=== PATIENT | female | born 1945 | race Caucasian/White ===

== ENCOUNTER 2022-03-31 08:34 | Outpatient (CLI) | payer OTHER, SELFPAY ==
--- NOTE | 2022-03-31 08:45 | MR_ITS ---
WS: [id number] MRI BRAIN WITHOUT CONTRAST HISTORY: R42 - Dizziness and giddiness COMPARISON: None available. TECHNIQUE: Diffusion imaging, multiplanar T1, T2 and FLAIR imaging obtained. No evidence for acute infarct or hemorrhage. Chang-white matter differentiation is normal. Very minimal atrophy is symmetric. There are numerous T2 and FLAIR signal hyperintensities in the sub cortical and central white matter. These extend to the vertex and also through the central cerebrum. No sil or cerebellar abnormality. Ventricles and extra-axial spaces are normal. No inferior displacement of cerebellar tonsils. The sella turcica and pituitary gland are unremarkabl e. Dural venous sinuses and [place] demonstrate no abnormality on this unenhanced studies. Paranasal sinuses: Clear. Mastoid air cells: Small amount of fluid in the RIGHT mastoid air cell. No fluid extending into the i nternal or external auditory canal. No mass effect upon the cerebellopontine angle. Calvarium and scalp: Intact. MR/MR head wo con* [id number] IMPRESSION: 1. No acute infarct or hemorrhage. 2. Mild atrophy with moderate small vessel ischemic changes throughout the whi te matter. 3. No prior infarct. 4. Small amount of fluid in the RIGHT mastoid air cells.
--- NOTE | 2022-03-31 09:30 | MR_ITS ---
WS: [id number] MRA ANGIOGRAPHY [place] OF [place] HISTORY: R42 - Dizziness and giddiness COMPARISON: None available. TECHNIQUE: 3-D MR angiography is performed of the [place]. All images are reviewed including source images. Distal vertebral and basilar arteries are intact with no significant stenosis or plaque. Posterior ce rebral arteries are normal course and caliber. Dominant LEFT posterior communicating cerebral artery. The RIGHT may be absent or hypoplastic. Intracranial internal carotid arteries are normal course. No high-grade occlusions or significant dg nosis. Middle cerebral arteries are patent bilaterally. No aneurysm or atherosclerotic disease. Anter ior cerebral arteries are both normal caliber. No aneurysm in the anterior communicating artery. MR/MR angio head wo con [id number] IMPRESSION: 1. No occlusions or significant atherosclerotic disease resulting in stenosis. 2. 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 3. Dominant LEFT posterior communicating cerebral artery.
--- NOTE | 2022-03-31 09:30 | MR_ITS ---
WS: [id number] MRA CAROTID ARTERIES HISTORY: R42 - Dizziness and giddiness COMPARISON: None available. TECHNIQUE: MRA is performed without intravenous gadolinium. MIP and source images are reviewed. Right: Normal course and caliber common carotid artery. Internal and external carotid arteries are pa tent without significant atherosclerotic plaque burden. Left: Common carotid artery arises from the base of the innominate. No high-grade stenosis. Bifurcati on is intact. Internal and external carotid arteries are widely patent with no stenosis. Subclavian Arteries: Proximally both subclavian arteries are patent. Vertebral Arteries: Normal caliber vertebral arteries. Vertebral arteries are similar size. MR/MR angio neck wo con [id number] IMPRESSION: 1. No significant carotid artery stenosis. 2. Bovine arch. 3. Patent bilateral vertebral arteries, codominant.
== END 2022-03-31 08:35 | disposition home or self-care (01) ==
PROVIDERS: PCP Family Medicine; Visit Provider Specialist
DX: R42 Dizziness and giddiness (principal); G31.9 Degenerative disease of nervous system, unspecified
CPT/HCPCS: 70544; 70547; 70551